=== PATIENT | female | born 1980 | race Caucasian/White ===

== ENCOUNTER → 2016-06-16 | Outpatient (CLI) | payer BC ==
[~2016-06-16] MED LIST: ESOM20CA PO; IOHEXOL 240 MG/ML 50ML VIAL. ONE; IOHEXOL 300 MG/ML 75 ML VIAL. IV ONE; LORA10TA68 PO; METF10002 PO; METO50TA10 PO; MOME17SP NS; MONT10TA9 PO; SPIR25TA3 PO
--- NOTE | 2016-06-16 10:43 | RAD ---
Indication left lower quadrant pain for 6 months. Axial images of the abdomen and pelvis were obtained. Both IV and oral contrast were administered. Approximately 75 cc of Omnipaque 300 was administered intravenously. Note is made of a previous examination 08/01/2008. The lung bases are clear. There is no significant finding seen involving the liver or spleen. Clips are noted in the gallbladder fossa. The pancreas appears unremarkable. No adrenal or significant renal anomalies are seen. There is a small cyst associated with the right kidney similar to the previous exam. An acute finding in the abdomen is not seen. In the pelvis occasional diverticula are seen associated with the sigmoid colon. There is no active inflammation. A mass inflammatory process or acute finding in the pelvis is not seen. The appendix is seen in the right lower quadrant and appears unremarkable. IMPRESSION: No acute or significant finding seen in the abdomen or pelvis PQRS Compliance Statement: One or more of the following individualized dose reduction techniques were utilized for this examination: 1. Automated exposure control 2. Adjustment of the mA and/or kV according to patient size 3. Use of iterative reconstruction technique
== END | disposition home or self-care (01) ==
LOC: CT 08:52
PROVIDERS: ATTEND Nurse Practitioner Family
DX: R10.32 Left lower quadrant pain (principal); I10 Essential (primary) hypertension
CPT/HCPCS: 74177; Q9966; Q9967

== ENCOUNTER → 2017-08-12 | Outpatient (CLI) | payer BC ==
[~2017-08-12] MED LIST changes: -IOHEXOL 240 MG/ML 50ML VIAL. ONE; -IOHEXOL 300 MG/ML 75 ML VIAL. IV ONE; -METF10002 PO; +METF10003 PO; -METO50TA10 PO; +METO50TA29 PO
--- NOTE | 2017-08-12 16:37 | RAD ---
History: Right knee pain. Comparison: None. Findings: AP and lateral views of the right knee. Evaluation for acute traumatic injury is limited by lack of 3rd view. No definite acute fracture or dislocation is identified. No joint effusion is seen. No significant degeneration is identified. Fabella is noted. Impression: Unremarkable right knee radiographs. Electronically signed by: Roque Pruitt MD (08/12/2017 4:34 PM) [id number]
--- NOTE | 2017-08-12 16:45 | RAD ---
EXAM: Left hip, 2 views. HISTORY: Pain. COMPARISON: None. FINDINGS: Frontal and frog-leg views of the left hip are obtained. There is no fracture, dislocation or subluxation. There is a tiny os acetabulum. There are fallopian tube closure devices overlying the adnexal regions. IMPRESSION: No acute osseous finding. Electronically signed by: Consuelo Bishop MD (08/12/2017 4:42 PM) [facility]
== END | disposition home or self-care (01) ==
LOC: PMG 10:44
PROVIDERS: ATTEND Nurse Practitioner Family
DX: M25.561 Pain in right knee (principal); M25.552 Pain in left hip; M79.605 Pain in left leg
CPT/HCPCS: 73502; 73560